=== PATIENT | male | born 1990 | race African-American/Black ===

== ENCOUNTER 2019-02-18 19:47 | Emergency (ER) | payer SELFPAY ==
[~2019-02-18] VITALS: Ht 182.9 cm; Wt 62.1 kg
[2019-02-18 19:52] VITALS: BP 131/74
--- NOTE | 2019-02-18 20:17 | NUR ---
C/O L SIDE UPPER BACK/FLANK PAIN X2 DAYS. PT REPORTS DOING ALOT OF HEAVY LIFITING AT WORK, AND THINKS HE MAY HAVE PULLED SOMETHING OR INJURED HIMSELF WHILE AT WORK.
--- NOTE | 2019-02-18 20:50 | NUR ---
KRISTAL DAWN EVALUATING PT
[2019-02-18 21:01] VITALS: BP 131/74
--- NOTE | 2019-02-18 21:01 | NUR ---
Patient discharged with v/s stable. Written and verbal after care instructions given and explained. Patient alert, oriented and verbalized understanding of instructions. Ambulatory with steady gait. All questions addressed prior to discharge. ID band removed. Patient advised to follow up with PMD. Rx of FLEXERIL & IBUPROFEN given. Patient educated on indication of medication including possible reaction and side effects. Opportunity to ask questions provided and answered.
== END 2019-02-18 21:01 | disposition home or self-care (01) ==
LOC: MED 19:47
DX: S39.012A Strain of muscle, fascia and tendon of lower back, initial encounter (principal); F17.210 Nicotine dependence, cigarettes, uncomplicated; X50.0XXA Overexertion from strenuous movement or load, initial encounter; Y92.89 Other specified places as the place of occurrence of the external cause; Y93.89 Activity, other specified; Y99.8 Other external cause status
CPT/HCPCS: 99283